=== PATIENT | female | born 1950 | race African-American/Black ===

== ENCOUNTER 2022-02-14 21:15 | Emergency (ER) | payer SELFPAY ==
[~2022-02-14] VITALS: Ht 167.6 cm; Wt 57.0 kg
[2022-02-14] MEDS ORDERED: ALBUTEROL (0.083%) 2.5MG/3ML NEB HHN STA (23:24)
[2022-02-14] MEDS ORDERED: IPRATROPIUM BROMIDE (0.02%) 0.5MG/2.5ML NEB HHN STA (23:24)
[2022-02-15 00:15] LABS: BASOPHILS % 0.4 % (0.0-2.0); CHLORIDE 106 mEq/L (98-107); EOSINOPHILS % 2.6 % (0.0-5.0); HEMATOCRIT. 37.9 % (36.0-48.0); HEMOGLOBIN. 12.4 g/dL (12.0-16.0); MEAN CORPUSCULAR HEMOGLOBIN 27.7 pg (28.0-32.0); MEAN CORPUSCULAR VOLUME 84.8 fL (81.0-99.0); MEAN PLATELET VOLUME 8.7 fl (7.4-10.4); MONOCYTES % 7.2 % (2.0-8.0); NEUTROPHILS % 56.8 % (40.0-76.0); PLATELET 232 x1000/uL (130-400); RED BLOOD CELL COUNT 4.47 mill/uL (4.2-5.4); RED CELL DISTRIBUTION WIDTH 14.9 % (11.6-14.6)
[2022-02-15 04:25] VITALS: BP 165/81
== END 2022-02-15 04:50 | disposition home or self-care (01) ==
LOC: ER 21:15 → EDBEDREQ 02-15 00:21 → EDBEDREQTM 02-15 00:21 → ER 02-15 04:50 → CANBEDREQ 02-15 07:13
DX: R53.1 Weakness (principal); R06.02 Shortness of breath; R05.8 Other specified cough
CPT/HCPCS: 36415; 71045; 80053; 83605; 83880; 84484; 85025; 99284